=== PATIENT | male | born 1945 | race Caucasian/White ===

== ENCOUNTER 2024-08-07 10:01 | Outpatient (CLI) | payer MEDICARE, BC | END 2024-08-07 10:02 | disposition home or self-care (01) | LOC: SCSRAD 10:01 | PROVIDERS: ATTEND Student in an Organized Health Care Education/Training Program | DX: R05.3 Chronic cough (principal) | CPT/HCPCS: 71046 ==

== ENCOUNTER 2025-04-28 12:17 | Outpatient (CLI) | payer MEDICARE, BC | END 2025-04-28 12:18 | disposition home or self-care (01) | LOC: SCSRAD 12:17 | PROVIDERS: ATTEND Student in an Organized Health Care Education/Training Program | DX: M25.552 Pain in left hip (principal); M54.50 Low back pain, unspecified; M16.12 Unilateral primary osteoarthritis, left hip; M47.816 Spondylosis without myelopathy or radiculopathy, lumbar region | CPT/HCPCS: 72100 ==